=== PATIENT | female | born 1995 ===

== ENCOUNTER 2019-06-05 12:18 | Emergency (ER) | payer OTHER ==
[~2019-06-05] VITALS: Ht 165.1 cm; Wt 79.5 kg
[2019-06-05 12:21] VITALS: BP 141/91
== END 2019-06-05 14:30 | disposition left against medical advice (07) ==
LOC: EMS 12:26
DX: R51 Headache (principal); Z53.21 Procedure and treatment not carried out due to patient leaving prior to being seen by health care provider